=== PATIENT | female | born 1975 | race Caucasian/White ===

== ENCOUNTER → 2018-09-12 | Outpatient (CLI) | payer BC, OTHER ==
--- NOTE | 2018-09-15 10:01 | Diagnostic Imaging Report ---
INDICATION: Routine screening. COMPARISON: 03/23/2013 and 06/02/2012. TECHNIQUE: 2D and 3D bilateral screening mammography was performed with CAD. FINDINGS: Bilateral subpectoral breast implants are again noted. The implant contours appear smooth. Scattered fibroglandular densities in both breasts are noted. No dominant mass or malignant appearing microcalcifications are seen. The axillae are unremarkable. IMPRESSION: No mammographic features suspicious for malignancy are identified. ACR BI-RADS Category 2: Benign findings. Result letter will be mailed to the patient. Note: At least 10% of breast cancer is not imaged by mammography. Dictated by: Dictated on workstation # [id number]
== END ==
LOC: RAD 12:31
PROVIDERS: ATTEND Obstetrics & Gynecology
DX: Z12.31 Encounter for screening mammogram for malignant neoplasm of breast (principal)
CPT/HCPCS: 77067

== ENCOUNTER 2020-07-29 20:40 | Emergency (ER) | payer BC, OTHER ==
[~2020-07-29] VITALS: Ht 160 cm; Wt 60.3 kg
[2020-07-29] MEDS ORDERED: morphine INJ 10 MG/ML 1ML (SYR OR VIAL) IM STA (20:52)
[2020-07-29] MEDS ORDERED: ONDANSETRON 4 MG (ZOFRAN) ORAL DISSOLVE TAB PO STA (20:52)
--- NOTE | 2020-07-29 21:27 | Diagnostic Imaging Report ---
INDICATION: Chest pain and emesis. Frontal chest obtained at 8:46 p.m. Heart and mediastinal silhouette are normal in appearance. Lungs are clear. There is no pneumothorax or pleural fluid. IMPRESSION: Negative chest. Dictated by: Dictated on workstation # [id number]
--- NOTE | 2020-07-29 21:54 | ED General ---
General Chief Complaint: Oral/Throat Problems Stated Complaint: CHOKING Nursing Triage Note: pt states she was eating a hamburger and started choking, pt had 2-3 episodes of emesis, breathing normally Nursing Sepsis Screen: No Definite Risk History of Present Illness Date Seen by Provider: Jul 29, 2020 Time Seen by Provider: 20:55 Initial Comments Patient is a 44-year-old female with history of esophageal reflux who presents with esophageal food bolus sensation with inability to swallow. Symptoms began 30 minutes prior to ED arrival while eating a hamburger. Patient reports feeling as though hamburger was lodged in her upper esophagus. She vomited multiple times and was apparently able to expel most of the hamburger. She denies choking or gagging or aspiration episode. She reports residual discomfort above her jugular notch. She denies shortness of breath, cough chest tightness. No prior history of esophageal food bolus impaction or obstruction. No other acute symptoms or complaints. No medications or therapies taken prior to ED arrival. History of irregular menstrual period. Timing/Duration: 1/2 Hour Severity: Moderate Modifying Factors: improves with Other Associated Systoms: Other Allergies and Home Medications Allergies Coded Allergies: Penicillins (Verified Allergy, Unknown, 07/29/20) Patient Home Medication List Home Medication List Reviewed: Yes Review of Systems Review of Systems Constitutional: see HPI EENTM: see HPI Respiratory: see HPI Gastrointestinal: see HPI Genitourinary: see HPI Musculoskeletal: see HPI Skin: see HPI Psychiatric/Neurological: See HPI Hematologic/Lymphatic: See HPI Immunological/Allergic: see HPI All Other Systems Reviewed Negative Unless Noted: Yes Past [id number]-Ufmipl Hx Past Med/Social Hx: Reviewed Nursing Past Med/Soc Hx Patient Social History Alcohol Use: Denies Use Smoking Status: Current Everyday Smoker Type Used: Cigarettes 2nd Hand Smoke Exposure: No Recent Infectious Disease Expo: No Recent Hopitalizations: No Seasonal Allergies Seasonal Allergies: No Past Medical History Surgeries: No Respiratory: No Cardiac: No Neurological: No Genitourinary: No Gastrointestinal: No Musculoskeletal: No Endocrine: No HEENT: No Cancer: No Psychosocial: No Integumentary: No Blood Disorders: No Physical Exam Vital Signs Vital Signs - First Documented 07/29/20 20:44 Temp 36.2 Pulse 122 Resp 24 B/P (MAP) 165/103 (123) Pulse Ox 98 O2 Delivery Room Air Capillary Refill : Less Than 3 Seconds Height, Weight, BMI Height: '" Weight: lbs. oz. kg; 23.00 BMI Method: General Appearance: WD/WN, Anxious Eyes: Bilateral Eye Normal Inspection, Bilateral Eye PERRL, Bilateral Eye EOMI HEENT: PERRL/EOMI, Normal ENT Inspection, Pharynx Normal Neck: Full Range of Motion, Non Tender, Supple Respiratory: Chest Non Tender, Lungs Clear, Normal Breath Sounds Cardiovascular: Regular Rate, Rhythm, No Edema, Normal Peripheral Pulses Gastrointestinal: Non Tender, Soft Neurologic/Psychiatric: Alert, Oriented x3, No Motor/Sensory Deficits, welding machine operator II- XII Norm as Tested Skin: Normal Color Focused Exam Sepsis Stage: Ruled Out Progress/Results/Core Measures Suspected Sepsis Recent Fever Within 48 Hours: No Infection Criteria Present: None New/Unexplained Altered Menta: No Sepsis Screen: No Definite Risk SIRS Temperature: Pulse: 122 Respiratory Rate: 24 Blood Pressure 165 /103 Mean: 123 Results/Orders My Orders Orders - NACHO BLAS DO Morphine Injection (Morphine Injection (07/29/20 20:52) Ondansetron Oral Dissolve Tab (Zofran (07/29/20 20:52) Chest 1 View Ap/Pa Only (07/29/20 20:53) Vital Signs/I&O 07/29/20 20:44 Temp 36.2 Pulse 122 Resp 24 B/P (MAP) 165/103 (123) Pulse Ox 98 O2 Delivery Room Air Capillary Refill : Less Than 3 Seconds Blood Pressure Mean: 123 Departure Communication (Admissions) Chest x-ray: No acute cardiopulmonary disease. Patient given morphine injection for smoothness muscle relaxant and relief of anxiety. She is able to drink fluids without difficulty and swallow Jell-O. She feels as though she has passed her esophageal food bolus. No evidence of mediastin air or esophageal rupture in the ED. Abdomen soft nontender. Will treat supportively with PCP follow-up. Return precautions reviewed. Patient resting comfortably at time of discharge. Impression Primary Impression: Esophageal obstruction due to food impaction Disposition: HOME, SELF-CARE Condition: Stable Departure-Patient Inst. Decision time for Depature: 21:53 Referrals: NOLAN WESTFALL DO (PCP/Family) Primary Care Physician Patient Instructions: Food Obstruction Add. Discharge Instructions: You evaluated in the emergency department for food bolus impaction. This is likely related to heartburn and esophageal spasm. Please follow a liquid and soft mechanical diet for the next 10 days. Take 20 mg Pepcid twice daily for the next 5 days and start omeprazole 40 mg daily tomorrow and continue thereafter. Follow-up with your PCP for further evaluation. Return to the ED if new or worsening symptoms. All discharge instructions reviewed with patient and/or family. Voiced understanding. NACHO BLAS DO Jul 29, 2020 21:54
[2020-07-29 21:57] VITALS: BP 132/88
== END 2020-07-29 21:57 | disposition home or self-care (01) ==
LOC: EDUNIT# 20:40 → ER FS 20:42
DX: K22.2 Esophageal obstruction (principal); F17.210 Nicotine dependence, cigarettes, uncomplicated; Z88.0 Allergy status to penicillin
CPT/HCPCS: 71045